=== PATIENT | female | born 1960 | race Caucasian/White ===

== ENCOUNTER 2019-04-17 08:26 | Inpatient (IN) | payer OTHER ==
[~2019-04-17] VITALS: Ht 157.5 cm; Wt 102.6 kg
[~2019-04-17 08:26] MED LIST: AZIT500 PO; CIPR500 PO; FURO20 PO; LISI5 PO; Lovastatin20 MG PO; METO25 PO; METR500 PO; OXYACE5T PO
[2019-04-17 09:01] LABS: PCO2 Arterial 74.6 mmHg (35-45); PO2 Arterial 60.7 mmHg (80-100); pH Blood Arterial 7.42 (7.35-7.45)
[2019-04-17 09:01] LABS: BASOPHILS ABSOLUTE AUTO 0.04 K/mm3 (0.00-0.23); BASOPHILS PERCENT AUTO 0 % (0-2); EOSINOPHILS ABSOLUTE AUTO 0.03 K/mm3 (0.00-0.68); EOSINOPHILS PERCENT AUTO 0 % (0-6); Hematocrit 53.8 % (33.0-51.0); Hemoglobin 16.5 g/dL (11.5-16.0); IMMATURE GRAN ABSOLUTE AUTO 0.02 K/mm3 (0.00-0.10); IMMATURE GRAN PERCENT AUTO 0 % (0-1); LYMPHOCYTES ABSOLUTE AUTO 1.22 K/mm3 (0.84-5.20); LYMPHOCYTES PERCENT AUTO 12 % (21-46); MONOCYTES PERCENT AUTO 5 % (4-13); Mean Corpuscular HGB 30.1 pg (26.0-34.0); Mean Corpuscular HGB Conc 30.7 g/dL (31.5-36.5); Mean Platelet Volume 9.7 fL (9.1-12.4); NEUTROPHILS ABSOLUTE AUTO 8.45 K/mm3 (1.96-9.15); NEUTROPHILS PERCENT AUTO 82 % (41-73); Platelet Count 185 K/mm3 (150-400); RDW Coefficient Variation 13.8 % (11.7-14.2); RDW Standard Deviation 50.4 fL (35.1-46.3); Red Blood Cell Count 5.49 M/mm3 (3.80-5.20); White Blood Cell Count 10.26 K/mm3 (4.00-11.30)
[2019-04-17 09:04] LABS: Mean Corpuscular Volume 98 fL (80-100)
[2019-04-17 09:32] LABS: Alanine Aminotransfer (ALT/SGP 21 U/L (12-78); Albumin, Blood 3.3 g/dL (3.4-5.0); Albumin/Globulin Ratio 0.8 (0.8-1.8); Alk Phos 93 U/L (50-136); Anion Gap 5 mmol/L (6-16); Aspartate Aminotrans (AST/SGOT 19 U/L (12-37); Bilirubin, Total 1.1 mg/dL (0.1-1.0); Blood Urea Nitrogen 9 mg/dL (8-24); Bun/Creatinine Ratio 17.8 (12.0-20.0); CO2, Blood 40 mmol/L (21-32); Calcium, Blood 9.6 mg/dL (8.5-10.1); Chloride, Blood 88 mmol/L (98-108); Creatinine, Blood 0.51 mg/dL (0.40-1.00); Globulin, Blood 4.1 g/dL (2.2-4.0); Glomerular Filtration Rate >60 (60-); Glucose, Blood 123 mg/dL (70-99); Potassium, Blood 3.9 mmol/L (3.5-5.5); Sodium, Blood 133 mmol/L (136-145); Total Protein, Blood 7.4 g/dL (6.4-8.2); Troponin I <0.015 ng/mL (0.000-0.040)
--- NOTE | 2019-04-17 12:32 | NUR ---
ADMIT NOTE RECEIVED REPROT FROM BECKA XIAO RN IN ED. PT TO ROOM AT 1130. SBA TO BED. PT ON 3L O2 VIA NC, WHICH IS THE PATIENT HOME DOSE, WHICH STARTED 04/12/19 THROUGH PCP. PT SPO2 80-86% ON 3L O2 VIA NC, TITRATED TO 4L O2 VIA NC 87-92%, PT CONTINUES TO DROP WITH ACTIVITY, 84-86% WHEN UP TO BSC, RECOVERED WITH 2 MINUTES. BREATHING LABORED,USE OF ACCESSORY MUSCLES NOTED. SOB REST/EXERTION. PT/SPOUSE ORIENTED TO ROOM AND CALL LIGHT. PT EDUCATED ON FALL RISK AND TO CALL FOR ASSISTANTS. PT A&Ox4. PT COOPERATIVE WITH CARE. PT STATES SHE DIDNT NOT PLAN ON BEING HERE TODAY. PT DENIES PAIN AND NAUSEA AT THIS TIME. PT PT STATES SHE WEARS CPAP AT HOME, SPOUSE PLANS TO BRING IT IN. PT STATES SHE DOES NOW KNOW ALL THE MEDICATIONS SHE IS ON, BUT COMFIRMS THAT SHE HAS TAKEN HER LASIX, METOPROLOL AND GI MED THIS AM AT 0430. MED LIST REQUESTED FROM PHARMACY, AND UPDATED. RED RASH PRESENT UNDER BILATERAL BREATS, STATES SHE HAS HAD IT ALL HER LIFE. VSS. WILL CONTINUE TO [facility].
[2019-04-17] MEDS ORDERED: Zantac150 MG PO (12:51)
--- NOTE | 2019-04-17 17:17 | NUR ---
SHIFT SUMMARY PT A&Ox4. ANXIOUS BUT COOPERATIVE WITH CARE. PT RESTING IN BED DURING SHIFT, UP TO BSC WITH SBA. PT SOB AT REST AND WITH ACTIVITY, RT PLACED PT ON HOME CPAP TO MAINTAIN O2 SATURATION AT 88-92%, BREATHING CONTINUES TO BE LABORED AND PT USING ACCESSORY MUSCLES. LS DIM T/O. PT DENIES PAIN AND NAUSEA/EMESIS. PT RECEIVING IV LASIX AND STARTING ON PO STEROIDS THIS EVENING. ELEVATED BP NOTED. WILL CONTINUE TO MONITOR.
[2019-04-17 17:18] LABS: Free Thyroxine 1.08 ng/dL (0.70-1.60)
--- NOTE | 2019-04-17 17:30 | NUR ---
NOTIFIED DR PRESTON OF [facility], STATES PT HAD RECENTLY FINISHED A JUICE AT BEDSIDE AND CLARIFIED NOTE IN H&P REGARDING A1C LABS. NEW ORDERS ENTERED. WILL CONTINUE TO MONITOR.
[2019-04-18 03:54] LABS: BASOPHILS PERCENT AUTO 0 % (0-2); EOSINOPHILS PERCENT AUTO 0 % (0-6); Hematocrit 53.5 % (33.0-51.0); IMMATURE GRAN ABSOLUTE AUTO 0.02 K/mm3 (0.00-0.10); IMMATURE GRAN PERCENT AUTO 0 % (0-1); LYMPHOCYTES ABSOLUTE AUTO 0.62 K/mm3 (0.84-5.20); LYMPHOCYTES PERCENT AUTO 8 % (21-46); MONOCYTES ABSOLUTE AUTO 0.21 K/mm3 (0.16-1.47); MONOCYTES PERCENT AUTO 3 % (4-13); Mean Corpuscular HGB 29.7 pg (26.0-34.0); Mean Corpuscular HGB Conc 29.9 g/dL (31.5-36.5); Mean Corpuscular Volume 99 fL (80-100); NEUTROPHILS ABSOLUTE AUTO 6.56 K/mm3 (1.96-9.15); NEUTROPHILS PERCENT AUTO 89 % (41-73); Platelet Count 189 K/mm3 (150-400); RDW Standard Deviation 51.8 fL (35.1-46.3); Red Blood Cell Count 5.39 M/mm3 (3.80-5.20); White Blood Cell Count 7.41 K/mm3 (4.00-11.30)
[2019-04-18 04:15] LABS: Alanine Aminotransfer (ALT/SGP 18 U/L (12-78); Albumin, Blood 3.1 g/dL (3.4-5.0); Albumin/Globulin Ratio 0.8 (0.8-1.8); Alk Phos 81 U/L (50-136); Aspartate Aminotrans (AST/SGOT 15 U/L (12-37); Bilirubin, Total 0.5 mg/dL (0.1-1.0); Blood Urea Nitrogen 12 mg/dL (8-24); Bun/Creatinine Ratio 20.2 (12.0-20.0); Calcium, Blood 9.8 mg/dL (8.5-10.1); Chloride, Blood 92 mmol/L (98-108); Globulin, Blood 3.9 g/dL (2.2-4.0); Glomerular Filtration Rate >60 (60-); Glucose, Blood 140 mg/dL (70-99); Potassium, Blood 3.2 mmol/L (3.5-5.5); Sodium, Blood 140 mmol/L (136-145)
[2019-04-18 04:26] LABS: Anion Gap Unable to Calculate mmol/L (6-16)
[2019-04-18 04:27] LABS: CO2, Blood >45 mmol/L (21-32)
--- NOTE | 2019-04-18 06:02 | NUR ---
SHIFT SUMMARY PT SLEEPING IN ROOM COMFORTABLY AT THIS TIME. NO ACUTE CHANGES IN STATUS T.O NIGHT. PT SLEPT IN SHORT PERIODS T/O NIGHT. SPOUSE AT BEDSIDE. PT USING OWN HOME CPAP MACHINE PER RT. EPISODES OF DESAT W/ EXERTION. PT ABLE TO HAVE SBA TO BSC, PT DESATS W/ EXERTION BUT IS ABLE TO RECOVER QUICKLY ONCE BACK IN BED. DENIES ANY CP. RESP TACHY AND SHALLOW ON CPAP, W/ SATS 88-90% DENIES OTHER NEEDS. CALL LIGHT IN REACH. SPOUSE AT BEDSIDE.
--- NOTE | 2019-04-18 11:51 | NUR ---
Initial Visit: Palliative Care Consult for Pulmonary, Cardiac, AD/POLST, and Symptom Management. Received call from residential caregivermanager Pope prior to Pt visit. She reports Pt is requesting assistance with completing form related to either advanced directive or living will. Pt is A&O and denies pain at this time. Dyspnea noted as evidenced by work of breathing when speaking. Engaged in therapeutic discussion regarding goals of care. Pt reports living at home with her of 22 years. She reports independence of ADLs and wears oxygen at home. Discussed completing AD and Pt denies need at this time. She reports her main concern is receiving assistance with starting the application process for [employer] Disability. She states that she does not have internet at home and expresses concerns with ability of obtaining the information required to start application process. Instructed Pt this RN will contact residential caregiver and relay concerns. Engaged in conversation regarding disease process and encouraged Pt to have routine conversations with PCP in order to plan accordingly. Pt reports no other concerns at this time. Left message with residential caregiver Toshia and relayed Pt's concerns. Palliative Care will remain available.
[2019-04-18] MEDS ORDERED: ALBU90OI INH (12:11)
[2019-04-18] MEDS ORDERED: DOCU100 PO (12:16)
[2019-04-18] MEDS ORDERED: PRED20 PO (12:17)
[2019-04-18] MEDS ORDERED: METF500 PO (12:19)
[2019-04-18] MEDS ORDERED: FLUT1DIS5 INH (12:19)
[2019-04-18] MEDS ORDERED: TIOT18 INH (12:20)
[2019-04-18] MEDS ORDERED: SPIR25 PO (12:20)
== END 2019-04-18 14:00 | disposition home or self-care (01) | DRG 189 ==
LOC: ER 08:26 → PCU 09:57
PROVIDERS: Emergency Medicine; ADMIT Internal Medicine
PROC: 5A09357 Assistance with Respiratory Ventilation, Less than 24 Consecutive Hours, Continuous Positive Airway Pressure (ICD-10-PCS; principal; 2019-04-17)
DX: J96.01 Acute respiratory failure with hypoxia (principal); E66.01 Morbid (severe) obesity due to excess calories; I10 Essential (primary) hypertension; E11.9 Type 2 diabetes mellitus without complications; J44.9 Chronic obstructive pulmonary disease, unspecified; G47.33 Obstructive sleep apnea (adult) (pediatric); E78.5 Hyperlipidemia, unspecified; Z88.5 Allergy status to narcotic agent; Z79.899 Other long term (current) drug therapy
CPT/HCPCS: 36415; 36600; 71045; 80053; 82803; 82947; 83036; 84439; 84481; 84484; 85025; 93005; 93010; 93306; 94640; 94644; 94762; 96374; 96375; 99285-25; A9270; J1650; J1885; J1940; J2930; J7512

== ENCOUNTER 2021-11-08 21:57 | Inpatient (IN) | payer MEDICARE, OTHER ==
[~2021-11-08] VITALS: Ht 157.5 cm; Wt 91.9 kg
[~2021-11-08 21:57] MED LIST changes: +ALBU90OI INH; +ASPI81CH; +Bisoprolol Fumar5 MG; +DOCU100 PO; +FISH OIL 1,2001 EAC1; +FLUT1DIS5 INH; +METF500 PO; +PRED20 PO; +SPIR25 PO; +TIOT18 INH; +Zantac150 MG PO
[2021-11-08 22:41] LABS: BASOPHILS ABSOLUTE AUTO 0.04 K/mm3 (0.00-0.23); BASOPHILS PERCENT AUTO 1 % (0-2); EOSINOPHILS ABSOLUTE AUTO 0.05 K/mm3 (0.00-0.68); EOSINOPHILS PERCENT AUTO 1 % (0-6); Hematocrit 34.3 % (33.0-51.0); Hemoglobin 10.1 g/dL (11.5-16.0); IMMATURE GRAN ABSOLUTE AUTO 0.11 K/mm3 (0.00-0.10); IMMATURE GRAN PERCENT AUTO 2 % (0-1); LYMPHOCYTES ABSOLUTE AUTO 1.37 K/mm3 (0.84-5.20); LYMPHOCYTES PERCENT AUTO 26 % (21-46); MONOCYTES ABSOLUTE AUTO 0.52 K/mm3 (0.16-1.47); MONOCYTES PERCENT AUTO 10 % (4-13); Mean Corpuscular HGB 34.2 pg (26.0-34.0); Mean Corpuscular HGB Conc 29.4 g/dL (31.5-36.5); Mean Corpuscular Volume 116 fL (80-100); Mean Platelet Volume 10.3 fL (9.1-12.4); NEUTROPHILS ABSOLUTE AUTO 3.29 K/mm3 (1.96-9.15); NEUTROPHILS PERCENT AUTO 61 % (41-73); Platelet Count 114 K/mm3 (150-400); RDW Standard Deviation 55.8 fL (35.1-46.3); Red Blood Cell Count 2.95 M/mm3 (3.80-5.20); White Blood Cell Count 5.38 K/mm3 (4.00-11.30)
[2021-11-08 22:57] LABS: Albumin/Globulin Ratio 0.5 (0.8-1.8); Bilirubin, Total 1.8 mg/dL (0.1-1.0); Bun/Creatinine Ratio 10.2 (12.0-20.0); Calcium, Blood 8.4 mg/dL (8.5-10.1); Creatinine, Blood 2.25 mg/dL (0.40-1.00); Globulin, Blood 3.7 g/dL (2.2-4.0); Potassium, Blood 5.4 mmol/L (3.5-5.5); Total Protein, Blood 5.7 g/dL (6.4-8.2)
[2021-11-08 23:49] LABS: Influenza A, PCR NEGATIVE (NEGATIVE); Influenza B, PCR NEGATIVE (NEGATIVE); Resp Syncytial Virus, PCR NEGATIVE (NEGATIVE); SARS-Cov-2 (COVID-19) PCR, MMC NEGATIVE (NEGATIVE)
[2021-11-09] MEDS ORDERED: FAMO40 PO (03:04)
[2021-11-09] MEDS ORDERED: FURO40 PO (03:04)
[2021-11-09] MEDS ORDERED: Tessalon200 MG PO (03:05)
[2021-11-09] MEDS ORDERED: SPIR25 PO (03:07)
[2021-11-09 03:59] LABS: BASOPHILS ABSOLUTE AUTO 0.01 K/mm3 (0.00-0.23); BASOPHILS PERCENT AUTO 0 % (0-2); EOSINOPHILS PERCENT AUTO 0 % (0-6); Hematocrit 31.7 % (33.0-51.0); Hemoglobin 9.5 g/dL (11.5-16.0); IMMATURE GRAN ABSOLUTE AUTO 0.06 K/mm3 (0.00-0.10); IMMATURE GRAN PERCENT AUTO 1 % (0-1); LYMPHOCYTES ABSOLUTE AUTO 0.59 K/mm3 (0.84-5.20); LYMPHOCYTES PERCENT AUTO 11 % (21-46); MONOCYTES ABSOLUTE AUTO 0.31 K/mm3 (0.16-1.47); MONOCYTES PERCENT AUTO 6 % (4-13); Mean Corpuscular HGB 34.4 pg (26.0-34.0); Mean Corpuscular Volume 115 fL (80-100); Mean Platelet Volume 10.5 fL (9.1-12.4); NEUTROPHILS ABSOLUTE AUTO 4.61 K/mm3 (1.96-9.15); NEUTROPHILS PERCENT AUTO 83 % (41-73); Platelet Count 114 K/mm3 (150-400); RDW Standard Deviation 54.3 fL (35.1-46.3); Red Blood Cell Count 2.76 M/mm3 (3.80-5.20); White Blood Cell Count 5.58 K/mm3 (4.00-11.30)
--- NOTE | 2021-11-09 04:14 | NUR ---
PT NOTED TO HAVE A TREMOR/SHAKINESS THAT SHE REPORTS SHE HAS HAD FOR SOME AMOUNT OF TIME BUT CAN'T SPECIFY HOW LONG. PT APPEARS TO BE ANXIOUS AND IS RESTLESS WELL. SHE FIDGITS WITH HER MONITOR WIRES BUT CAN BE REDIRECTED. SHE IS ORIENTED X 4, MAEW, UP W/1 PERSON ASSIST TO BATHROOM TOLERATING WELL.
[2021-11-09 04:15] LABS: Bun/Creatinine Ratio 10.7 (12.0-20.0); Calcium, Blood 8.1 mg/dL (8.5-10.1); Creatinine, Blood 2.24 mg/dL (0.40-1.00); Potassium, Blood 4.3 mmol/L (3.5-5.5)
[2021-11-09 04:32] LABS: Albumin/Globulin Ratio 0.6 (0.8-1.8); Bilirubin, Direct 1.3 mg/dL (0.0-0.3); Bilirubin, Indirect 0.4 mg/dL (0.1-0.7); Bilirubin, Total 1.7 mg/dL (0.1-1.0); Globulin, Blood 3.4 g/dL (2.2-4.0); Total Protein, Blood 5.4 g/dL (6.4-8.2)
--- NOTE | 2021-11-09 07:30 | NUR ---
ASSUMED CARE: PT RESTING IN BED. 3L O2 VIA NC. NSR WITH PVCS AT 97. ULTRA SOUND TECH AT BEDSIDE AT THIS TIME. NO ACUTE NEEDS OR CONCERNS AT THIS TIME.
--- NOTE | 2021-11-09 08:39 | NUR ---
DR WALTERS CAME TO SEE PT AND PT ASKED IF SHE COULD GO HOME. EDUCATED HER THAT A FEW MORE DAYS MAY BE REQUIRED HERE SINCE SHE IS STILL SOB ON EXERTION AND VARIOUS LABS ARE OUT OF BALANCE. PT NOW MED/TELE STATUS. WIDTH STRIPPER AWARE
--- NOTE | 2021-11-09 09:29 | NUR ---
ECHO AT BEDSIDE
--- NOTE | 2021-11-09 09:50 | NUR ---
Echocardiogram completed.
--- NOTE | 2021-11-09 11:09 | NUR ---
PT WAS CALLING OUT FOR DANTE AND WHEN NURSE ENTERED ROOM SHE THOUGHT NURSE WAS DANTE. NURSE REORIENTED AND PT EXPLAINED THAT DANTE WAS HER TURBO OPERATOR BUT SHE WAS CONFUSED TO WHERE SHE WAS. IMPULSIVE, CALLS FOR HELP BY YELLING OUT. DOES NOT USE CALL LIGHT AND DOES NOT FOLLOW INSTRUCTIONS WELL WHEN STAFF TRIES TO ASSIST. CALL TO DR WALTERS TO REPORT THESE BEHAVIORS WITH SUSPICIONS THAT PT IS WITHDRAWING FROM EITHER ALCOHOL OR SUBSTANCE. ORDER FOR UA THAT HAS BEEN SENT. ORDER FOR ATIVAN FOR CIWAS. CIWA SCORE 12. 1MG ATIVAN ADMINISTERED. BED ALARM ON, CALL LIGHT IN REACH
[2021-11-09 11:59] LABS: U Amphetamine Screen Not Detected; U Barbituate Screen Not Detected; U Benzodiazapine Screen Not Detected; U Buprenorphine Screen Not Detected; U Cannabinoids Screen Not Detected; U Cocaine Screen Not Detected; U Methadone Screen Not Detected; U Methamphetamine Screen Not Detected; U Opiates Screen Not Detected; U Oxycodone Screen Not Detected; U Phencyclidine Screen Not Detected; U Propoxyphene Screen Not Detected
--- NOTE | 2021-11-09 12:20 | NUR ---
PT SET OFF BED ALARM AND NEEDED BATHROOM ASSISTANCE. VERY TREMULOUS. ASSISTED TO COMMODE, IMPULSIVE. ASKED PT ABOUT CIWA SYMPTOMS. SEE SCORE. PT STATES SHE KNOWS SHE IS IN HOSPITAL. ASKED DAY OF WEEK AND PT SAID WEDNESDAY. RN CORRECTED THAT IT IS WEDNESDAY AND PT SAID "NO IT'S ACTUALLY WEDNESDAY, I KNOW WHAT DAY IT IS." SLIGHTLY AGITATED WITH THIS CONVERSATION. CIWA CURRENTLY AT 13. CALL TO DR WALTERS TO UPDATE ON CIWA AND TO LET HIM KNOW THAT UTOX IS NEGATIVE. BED ALARM ON
--- NOTE | 2021-11-09 14:57 | NUR ---
PT CONTINUED TO PULL OUT IV LINE. RN AT BEDSIDE ATTEMPTING POWERGLIDE WITH NO SUCCESS. PT CONTINUES TO BE RESTLESS AND AGITATED AND STATED SHE KEPT NEEDING TO GET UP OUT OF BED. CALL TO DR WALTERS FOR [place] ORDERS AND PRECEDEX NEEDED GIVEN PT'S ALCOHOL WITHDRAWALS HAVE NOT BEEN WELL CONTROLLED WITH ORAL MEDS. AWAITING IV ACCESS. BED ALARM ON AND BED IN LOW POSITION AT THIS TIME.
[2021-11-09 14:58] LABS: Source, Urine Clean Catch
[2021-11-09 15:04] LABS: Bilirubin, Urine Neg (Neg); Blood, Urine 3+ (Neg); Glucose Qualitative, Urine Neg (Neg); Ketones, Urine Neg (Neg); Leukocyte Esterase, Urine Neg (Neg); Nitrite, Urine Neg (Neg); Protein, Urine 1+ (Neg); Specific Gravity, Urine 1.005 (1.003-1.022); Urobilinogen, Urine NORM (Normal)
[2021-11-09 15:20] LABS: Appearance, Urine Hazy (Clear); Color, Urine Amber (P-Yellow); White Blood Cells, Urine 0-2 /hpf (0-5)
[2021-11-09 15:21] LABS: Bacteria Few /hpf; Squamous Epithelial Cells Rare /hpf (Few)
--- NOTE | 2021-11-09 18:02 | NUR ---
SHIFT SUMMARY: PT MEDICATED X3 FOR CIWAS 12-13. [place] CATH IN PLACE DUE TO INCREASED CONFUSION AND WEAKNESS AND FREQUENT URINATION DUE TO DIURESES FOR CHF. HR NSR AT 86 WITH SOME PVCS. 2L O2 VIA NC. BED ALARM ON, BED IN LOW POSITION, CALL LIGHT IN REACH. RESTING QUIETLY AT THIS TIME.
--- NOTE | 2021-11-09 19:30 | NUR ---
ASSUMPTION OF CARE PT IS ALERT W/NO S/S OF ACUTE DISTRESS NOTED AT TIME OF ASSUMPTION OF CARE
[2021-11-10 04:03] LABS: Bun/Creatinine Ratio 14.8 (12.0-20.0); Calcium, Blood 8.8 mg/dL (8.5-10.1); Creatinine, Blood 1.49 mg/dL (0.40-1.00); Potassium, Blood 3.7 mmol/L (3.5-5.5)
--- NOTE | 2021-11-10 06:31 | NUR ---
SHIFT SUMMERY PT MEDICATED ACCORDING TO CIWA PER MD ORDERS. VS STABLE, 3LNC. NO ACUTE CHANGES OVERNIGHT
--- NOTE | 2021-11-10 07:49 | NUR ---
ASSUME CARE: I assumed care of this patient at 0700.
--- NOTE | 2021-11-10 12:39 | NUR ---
HANDOFF: Report given to PHYSICAL METALLURGISTRavinder. At this time pt is resting in bed.
--- NOTE | 2021-11-10 12:44 | NUR ---
Assumed care from Oksana at 1230. VSS on 3L. Pt sleeping at the start of assessment, woke up and was repositioned and sat up for lunch. Pt oriented and a little anxious.
--- NOTE | 2021-11-10 15:35 | NUR ---
Pt sleeping most of the afternoon, but wakes up easily when in room. VSS on 3L. Not much appetite, complains food is not good. Still anxious and reports she wants to go home.
--- NOTE | 2021-11-10 17:39 | NUR ---
Shift note: Pt is alert and oriented, did sleep most of the day. Anxious when awake and eager to go home. VSS on 3L, which is pt baseline. Tele: sinus tach 100-110s. CIWA scores 3-5, no prn needed. Scored for tremors and anxiety. Gibbs in place and draining well. Pt is moving around independently in bed, needing help with boosts. IV lasix continued, good output, see I/O. Skin is reddened in familia area and reddened on coccyx, but blanchable. Pt reported she lives at home with spouse.
[2021-11-11 03:54] LABS: Bun/Creatinine Ratio 18.1 (12.0-20.0); Creatinine, Blood 1.16 mg/dL (0.40-1.00); Potassium, Blood 3.1 mmol/L (3.5-5.5)
--- NOTE | 2021-11-11 07:57 | NUR ---
ASSUMPTION OF CARE RECEIVED REPORT FROM NOC RN. PT IS ASLEEP IN BED AT THIS TIME, NOC RN REQUESTED TO NOT DISTURB PT. PT APPEARS COMFORTABLE AND IN NO APPARENT DISTRESS.
[2021-11-11] MEDS ORDERED: FLUTICASONE-SA1 EAC2 INH (09:52)
[2021-11-11] MEDS ORDERED: POTA10T PO (09:53)
--- NOTE | 2021-11-11 13:10 | NUR ---
PT WAS TRANSPORTED BY WHEELCHAIR TO [facility]. ALL BELONGINGS AND DISCHARGE INSTRUCTIONS WERE IN POSSESSION AT TIME OF DISCHARGE. ALL QUESTIONS AND CONCERNS WERE ADDRESSED PRIOR TO DISCHARGE. PT STATED NO FURTHER QUESTIONS OR CONCERNS AT TIME OF TRANSPORT.
== END 2021-11-11 13:12 | disposition home or self-care (01) | DRG 291 ==
LOC: ER 21:57 → ICUW 21:58
PROVIDERS: Internal Medicine; Student in an Organized Health Care Education/Training Program; ADMIT Family Medicine
PROC: HZ2ZZZZ Detoxification Services for Substance Abuse Treatment (ICD-10-PCS; principal; 2021-11-10)
DX: I11.0 Hypertensive heart disease with heart failure (principal); I50.33 Acute on chronic diastolic (congestive) heart failure; J96.01 Acute respiratory failure with hypoxia; N17.9 Acute kidney failure, unspecified; E87.1 Hypo-osmolality and hyponatremia; F10.239 Alcohol dependence with withdrawal, unspecified; Z20.822 Contact with and (suspected) exposure to COVID-19; D69.6 Thrombocytopenia, unspecified; I95.9 Hypotension, unspecified; D64.9 Anemia, unspecified; R79.89 Other specified abnormal findings of blood chemistry; J43.9 Emphysema, unspecified; E78.5 Hyperlipidemia, unspecified; E87.5 Hyperkalemia; G47.30 Sleep apnea, unspecified; Z99.81 Dependence on supplemental oxygen; Z98.890 Other specified postprocedural states; Z87.891 Personal history of nicotine dependence; Z88.5 Allergy status to narcotic agent; Z91.018 Allergy to other foods; Z79.82 Long term (current) use of aspirin; Z79.899 Other long term (current) drug therapy
CPT/HCPCS: 0241U; 36415; 51703; 71046; 76705; 80048; 80053; 80076; 81001; 83690; 83880; 84484; 85025; 93005; 93010; 93306; 94640; 94644; 94645; 96372; 96374; 96375; 96376; 99285-25; A9270; G0378; J1100; J1644; J1940; J2060; J2930